=== PATIENT | male | born 1995 | race Caucasian/White ===

== ENCOUNTER 2025-05-30 13:04 | Outpatient (REF) | payer SELFPAY ==
[2025-05-31 10:52] LABS: Chlamydia Result Negative (Negative); GC Result Negative (Negative)
== END 2025-05-30 13:05 | disposition home or self-care (01) ==
LOC: LBN 13:04
PROVIDERS: Visit Provider Nurse Practitioner Family
DX: Z11.3 Encounter for screening for infections with a predominantly sexual mode of transmission (principal)
CPT/HCPCS: 87491; 87591